=== PATIENT | male | born 1995 | race Caucasian/White ===

== ENCOUNTER 2016-10-08 18:47 | Emergency (ER) | payer OTHER ==
--- NOTE | 2016-10-08 21:11 | UC ---
Back Pain HPI - HPI Summary HPI Summary: complaint of lower back pain front flipped off the table and landed on his sacrum denies hitting his head -no LOC this morning he woke up and he is having and intermittent aching pain non radiating pain worse with movement and coughing rest lessens the pain hasn't taken any medications for pain denies neck pain, fever , incontinence, denies numbness and tingling in his legs - History of Current Complaint Stated Complaint: LOWER BACK PAIN Time Seen by Provider: 10/08/16 21:05 Hx Obtained From: Patient - Allergies/Home Medications Allergies/Adverse Reactions: Allergies Allergy/AdvReac Type Severity Reaction Status Date / Time No Known Allergies Allergy Verified 10/08/16 21:38 Home Medications: Home Medications NK [No Home Medications Reported] 10/08/16 [History Confirmed 10/08/16] PMH/Surg Hx/FS Hx/Imm Hx Previously Healthy: Yes Endocrine History Of: Denies: Diabetes Cardiovascular History Of: Denies: Cardiac Disorders Respiratory History Of: Denies: Asthma - Surgical History Surgical History: None - Family History Known Family History: Positive: Hypertension - paternal grandfather Negative: Cardiac Disease, Diabetes - Social History Occupation: Student Alcohol Use: Occasionally Substance Use Type: None Smoking Status (MU): Never Smoked Tobacco Review of Systems Constitutional: Negative Skin: Negative Eyes: Negative ENT: Negative Respiratory: Negative Cardiovascular: Negative Gastrointestinal: Negative Genitourinary: Negative Motor: Negative Neurovascular: Negative Musculoskeletal: Other: - lower bcak pain, sacrum pain Neurological: Negative Psychological: Negative All Other Systems Reviewed And Are Negative: Yes Physical Exam Triage Information Reviewed: Yes Appearance: No Pain Distress, Well-Nourished Vital Signs Reviewed: Yes Eyes: Positive: Conjunctiva Clear ENT: Positive: Pharynx normal, TMs normal Neck: Positive: Supple, No Lymphadenopathy, Other: - no cspine tenderness Respiratory: Positive: Lungs clear, Normal breath sounds, No respiratory distress Cardiovascular: Positive: RRR, No Murmur, Pulses Normal Abdomen Description: Positive: Nontender, Soft. Negative: CVA Tenderness (R), CVA Tenderness (L), Distended, Guarding Bowel Sounds: Positive: Present Musculoskeletal: Positive: Strength Intact, Other: - BACK- paraspinal lumar tenderness scaral tenderness no ecchymosis or edema full ROM Neurological: Positive: Alert, Other: - negaitve SLR patellar reflexes intact Psychological Exam: Normal Skin Exam: Normal Back Pain Course/Dx - Course Course Of Treatment: exam completed. x-ray ordered d/t trauma- no acute changes noted on x-ray. conservatiove treatment NSAIDS and followup with ortho if no improvement. no neurologic deficits - Differential Dx/Diagnosis Differential Diagnosis/HQI/PQRI: Fracture, Herniated Disc, Strain, Sprain Provider Diagnoses: lower back pain - contusion. sacral contusion Discharge - Discharge Plan Condition: Stable Disposition: HOME Patient Education Materials: Low Back Strain (ED), Sacroiliitis (ED), Contusion in Adults (ED) Referrals: Non Staff,Doctor [Primary Care Provider] - Tank Hinton MD [Medical Doctor] - Additional Instructions: Increase fluids and rest Take ibuprofen for fever and to reduce inflammation If pain doesn't slowly improve of worsens please call PT and orthopedics. Please review your discharge instructions. If your symptoms do not improve please call your primary care provider or return to urgent care
[2016-10-08] MEDS ORDERED: Ibuprofen TAB* 400 MG PO ONE (21:14)
--- NOTE | 2016-10-08 21:45 | RAD ---
HISTORY: Low back pain, trauma COMPARISONS: None VIEWS: 3, frontal, outlet, and lateral views of the sacrum and coccyx FINDINGS: BONE DENSITY: Normal. BONES: There is no displaced fracture. The sacral arches are intact. JOINTS: There is no arthropathy. ALIGNMENT: There is no dislocation. SOFT TISSUES: Unremarkable. OTHER FINDINGS: None. IMPRESSION: NO ACUTE OSSEOUS INJURY OF THE SACRUM AND COCCYX. PLAIN FILMS ARE RELATIVELY INSENSITIVE TO NONDISPLACED FRACTURES OF THE SACRUM AND COCCYX. IF THERE IS PERSISTENT CLINICAL CONCERN FOR SACROCOCCYGEAL OSSEOUS PATHOLOGY, BONE SCANNING MAY BE MORE SENSITIVE
--- NOTE | 2016-10-08 21:46 | RAD ---
HISTORY: Trauma, back pain COMPARISONS: None VIEWS: 3 , Frontal, lateral, and coned-down lateral sacral views of the lumbar spine FINDINGS: ALIGNMENT: There is straightening of the normal lumbar lordosis. VERTEBRAL BODIES: The vertebral body heights are normal. The interpedicular distances are normal. JOINTS: The facet joints are normal. INTERVERTEBRAL DISCS: Unremarkable SOFT TISSUE: Unremarkable. OTHER: The pelvis is unremarkable. The lung bases are clear. IMPRESSION: STRAIGHTENING OF THE LUMBAR LORDOSIS
[2016-10-08 21:56] VITALS: BP 133/60
== END 2016-10-08 22:01 | disposition home or self-care (01) ==
LOC: UCCORT 18:47
DX: S30.0XXA Contusion of lower back and pelvis, initial encounter (principal); X58.XXXA Exposure to other specified factors, initial encounter; Y93.9 Activity, unspecified; Y92.9 Unspecified place or not applicable
CPT/HCPCS: 72100; 72220; 99211; A9270-GY; G0463

== ENCOUNTER 2016-10-11 19:06 | Emergency (ER) | payer OTHER ==
[2016-10-11 20:50] VITALS: BP 125/71
[2016-10-11] MEDS ORDERED: Cyclobenzaprine TAB* 10 MG PO ONE (21:06)
--- NOTE | 2016-10-11 21:17 | UC ---
Back Pain HPI - HPI Summary HPI Summary: Pt seen 10/08/16 after falling off of table the night before. Had focal sacral pain, no fx on x-ray. Was feeling better 10/09/16, then yesterday feet slipped out from underneath him on stairs and he fell backward again. Missed classes today and would like a note for it. Not concerned about bones, denies radiating pain, trouble with bowel or bladder, or muscle weakness. - History of Current Complaint Chief Complaint: UCBackPain Stated Complaint: BACK PAIN Time Seen by Provider: 10/11/16 20:55 Hx Obtained From: Patient Onset/Duration: Sudden Onset Timing: Constant Severity Initially: Moderate Severity Currently: Moderate Back Pain: Is Discrete @ Character: Dull, Aching Aggravating: Movement, Walking Alleviating: Rest Associated Signs And Symptoms: Negative: Bruising, Weakness, Numbness, Tingling , Bladder Incontinence, Bowel Incontinence, Weight Loss - Allergies/Home Medications Allergies/Adverse Reactions: Allergies Allergy/AdvReac Type Severity Reaction Status Date / Time No Known Allergies Allergy Verified 10/11/16 20:49 Home Medications: Home Medications Ibuprofen [Ibuprofen 200 MG] 200 mg PO PRN 10/11/16 [History] PMH/Surg Hx/FS Hx/Imm Hx Endocrine History Of: Denies: Diabetes Cardiovascular History Of: Denies: Cardiac Disorders Respiratory History Of: Denies: Asthma - Surgical History Surgical History: None - Family History Known Family History: Positive: Hypertension - paternal grandfather Negative: Cardiac Disease, Diabetes - Social History Occupation: Student Alcohol Use: Occasionally Substance Use Type: None Smoking Status (MU): Never Smoked Tobacco Review of Systems Constitutional: Negative Skin: Negative Eyes: Negative ENT: Negative Respiratory: Negative Cardiovascular: Negative Gastrointestinal: Negative Genitourinary: Negative Motor: Negative Neurovascular: Negative Musculoskeletal: Arthralgia, Myalgia Neurological: Negative Psychological: Negative All Other Systems Reviewed And Are Negative: Yes Physical Exam Triage Information Reviewed: Yes Appearance: Well-Appearing, No Pain Distress, Well-Nourished Vital Signs: Initial Vital Signs Temp 98.2 F 10/11/16 20:40 Pulse 65 10/11/16 20:40 Resp 14 10/11/16 20:40 BP 125/71 10/11/16 20:40 Pulse Ox 99 10/11/16 20:40 Vital Signs Reviewed: Yes Eye Exam: Normal Eyes: Positive: Conjunctiva Clear ENT Exam: Normal ENT: Positive: Normal ENT inspection, Hearing grossly normal, Pharynx normal, TMs normal Dental Exam: Normal Neck exam: Normal Neck: Positive: Supple, Nontender, No Lymphadenopathy Respiratory Exam: Normal Respiratory: Positive: Chest non-tender, Lungs clear, Normal breath sounds, No respiratory distress, No accessory muscle use Cardiovascular Exam: Normal Cardiovascular: Positive: RRR, No Murmur Musculoskeletal Exam: Normal, Other - no bony tenderness in back Musculoskeletal: Positive: Strength Intact, ROM Intact Neurological Exam: Normal, Other - DTRs 2+ BLE Neurological: Positive: Alert, Muscle Tone Normal Psychological Exam: Normal Skin Exam: Normal Back Pain Course/Dx - Differential Dx/Diagnosis Provider Diagnoses: low back contusion. low back strain Discharge - Discharge Plan Condition: Stable Disposition: HOME Patient Education Materials: Acute Low Back Pain (ED), Contusion in Adults (ED) Forms: *School Release Referrals: Dontrell Juan MD [Medical Doctor] - Additional Instructions: You have declined x-rays today. This is reasonable, as you do not have clinical signs of fracture at this time; however, please get seen again right away if you develop pain or numbness radiating down your legs, difficulty passing urine or stool (or incontinence), numbness in your saddle region, weakness in your legs, inability to get an erection, persistent/worsening pain.
== END 2016-10-11 21:15 | disposition home or self-care (01) ==
LOC: UCCORT 19:06
DX: S30.0XXA Contusion of lower back and pelvis, initial encounter (principal); S39.012A Strain of muscle, fascia and tendon of lower back, initial encounter; W17.89XA Other fall from one level to another, initial encounter; W10.9XXA Fall (on) (from) unspecified stairs and steps, initial encounter; Y93.9 Activity, unspecified; Y92.9 Unspecified place or not applicable
CPT/HCPCS: 99212; A9270-GY; G0463

== ENCOUNTER 2016-10-24 11:59 | Emergency (ER) | payer OTHER ==
[2016-10-24 12:56] VITALS: BP 139/57
--- NOTE | 2016-10-24 12:56 | UC ---
UC General HPI - HPI Summary HPI Summary: vomiting since yest, worse today, no energy, stomach hurts. Vomited 6 times today. Not sure if he has had a fever. was at a lot of parties 10/18/16-10/22/16 Doesn't know if he was a the constitution party where there was meningitis but states he could have been there. He is a [employer] student. Stomach feels uncomfortable, rates discomfort a 6. No diarrhea. - History of Current Complaint Stated Complaint: VOMITING Time Seen by Provider: 10/24/16 12:50 Hx Obtained From: Patient Onset/Duration: Gradual Onset, Lasting Days, Still Present Timing: Constant Onset Severity: Moderate Current Severity: Moderate Pain Intensity: 7 Pain Location at: abdomen Pain Radiates to: no Character: "uncomfortable" Associated Signs & Symptoms: Positive: Abdominal Pain, Nausea, Vomiting - Allergy/Home Medications Allergies/Adverse Reactions: Allergies Allergy/AdvReac Type Severity Reaction Status Date / Time No Known Allergies Allergy Verified 10/24/16 12:50 PMH/Surg Hx/FS Hx/Imm Hx Previously Healthy: Yes Endocrine History Of: Denies: Diabetes Cardiovascular History Of: Denies: Cardiac Disorders Respiratory History Of: Denies: Asthma - Surgical History Surgical History: None - Family History Known Family History: Positive: Hypertension - paternal grandfather Negative: Cardiac Disease, Diabetes - Social History Occupation: Student - [employer] Alcohol Use: Occasionally Substance Use Type: None Smoking Status (MU): Never Smoked Tobacco Review of Systems Constitutional: Negative Skin: Negative Eyes: Negative ENT: Negative Respiratory: Negative Cardiovascular: Negative Gastrointestinal: Abdominal Pain, Vomiting Genitourinary: Negative Motor: Negative Neurovascular: Negative Musculoskeletal: Negative Neurological: Negative Psychological: Negative All Other Systems Reviewed And Are Negative: Yes Physical Exam Triage Information Reviewed: Yes Appearance: Well-Appearing, Well-Nourished, Pain Distress Vital Signs: afebrile Vital Signs Reviewed: Yes Eyes: Positive: Conjunctiva Inflamed, Other: - subconjunctival hemorrhage ENT: Positive: Normal ENT inspection, Hearing grossly normal. Negative: Muffled /hoarse voice Neck: Positive: Supple, Nontender, No Lymphadenopathy Respiratory: Positive: Lungs clear, Normal breath sounds, No respiratory distress Abdomen Description: Positive: No Organomegaly, Soft. Negative: Nontender - diffuse mild tenderness, CVA Tenderness (R), CVA Tenderness (L), Distended, Guarding Musculoskeletal: Positive: Strength Intact, ROM Intact Neurological: Positive: Alert, Muscle Tone Normal Psychological Exam: Normal Skin Exam: Normal Course/Dx - Differential Dx - Multi-Symptom Differential Diagnoses: Other - gastroenteritis Provider Diagnoses: prophylaxis for meningitis exposure. gastroenteritis Discharge - Discharge Plan Condition: Stable Disposition: HOME Prescriptions: Ciprofloxacin TAB* [Cipro Tab*] 500 mg PO ONCE #1 tab Ondansetron ODT TAB* [Zofran Odt TAB*] 4 mg PO Q8H PRN #10 tab.odt PRN Reason: Nausea Patient Education Materials: Gastroenteritis (ED) Forms: *School Release Referrals: Non Staff,Doctor [Primary Care Provider] - Additional Instructions: Follow up with [facility] office, or return to urgent care if no improvement. If any temperature about 100.5, neck pain, headache, or new symptoms, go directly to the closest emergency department.
== END 2016-10-24 13:22 | disposition home or self-care (01) ==
LOC: UCCORT 11:59
DX: K52.9 Noninfective gastroenteritis and colitis, unspecified (principal); Z20.811 Contact with and (suspected) exposure to meningococcus
CPT/HCPCS: 99212; G0463

== ENCOUNTER 2016-11-06 16:32 | Emergency (ER) | payer OTHER ==
[2016-11-06 17:58] VITALS: BP 121/62
--- NOTE | 2016-11-06 18:30 | UC ---
UC General HPI - HPI Summary HPI Summary: patient has on sudden onset upset stomach this after noon, vomited 3 times has had some diarrhea as well. denies any fever, mild sore throat. - History of Current Complaint Chief Complaint: UCGI Stated Complaint: STOMACH ACHE Time Seen by Provider: 11/06/16 18:12 Hx Obtained From: Patient Onset/Duration: Sudden Onset, Lasting Hours Timing: Constant Onset Severity: Moderate Current Severity: Moderate Associated Signs & Symptoms: Positive: Abdominal Pain, Diarrhea, Nausea - Allergy/Home Medications Allergies/Adverse Reactions: Allergies Allergy/AdvReac Type Severity Reaction Status Date / Time No Known Allergies Allergy Verified 11/06/16 17:57 PMH/Surg Hx/FS Hx/Imm Hx Previously Healthy: Yes Endocrine History Of: Denies: Diabetes Cardiovascular History Of: Denies: Cardiac Disorders Respiratory History Of: Denies: Asthma - Surgical History Surgical History: None - Family History Known Family History: Positive: Hypertension - paternal grandfather Negative: Cardiac Disease, Diabetes - Social History Alcohol Use: Occasionally Substance Use Type: None Smoking Status (MU): Never Smoked Tobacco - Immunization History Most Recent Influenza Vaccination: not this season Review of Systems Constitutional: Fatigue Skin: Negative Eyes: Negative ENT: Sore Throat Respiratory: Negative Cardiovascular: Negative Gastrointestinal: Abdominal Pain, Vomiting, Diarrhea Genitourinary: Negative Motor: Negative Neurovascular: Negative Musculoskeletal: Negative Neurological: Headache Psychological: Negative All Other Systems Reviewed And Are Negative: Yes Physical Exam Triage Information Reviewed: Yes Appearance: Well-Nourished, Ill-Appearing, Pain Distress Vital Signs: Initial Vital Signs Temp 98.0 F 11/06/16 17:52 Pulse 53 11/06/16 17:52 Resp 16 11/06/16 17:52 BP 121/62 11/06/16 17:52 Pulse Ox 100 11/06/16 17:52 Vital Signs Reviewed: Yes Eye Exam: Normal Eyes: Positive: Conjunctiva Clear ENT Exam: Normal ENT: Positive: Hearing grossly normal, Pharyngeal erythema - with posterior exudate, TMs normal, Tonsillar swelling Dental Exam: Normal Neck exam: Normal Neck: Positive: Supple, Nontender, No Lymphadenopathy Respiratory Exam: Normal Respiratory: Positive: Chest non-tender, Lungs clear, Normal breath sounds Cardiovascular Exam: Normal Cardiovascular: Positive: RRR, No Murmur, Pulses Normal Abdominal Exam: Other - diffuse abdominal tenderness around umblicus and epigastric area, no rebound tenderness, neg psoas sign. no palpable masses or organomegalsy noted Abdomen Description: Positive: No Organomegaly, Soft Bowel Sounds: Positive: Present Musculoskeletal Exam: Normal Musculoskeletal: Positive: Strength Intact, ROM Intact, No Edema Neurological Exam: Normal Neurological: Positive: Alert, Muscle Tone Normal Psychological Exam: Normal Skin Exam: Normal Course/Dx - Course Course Of Treatment: hx obtained, exam performed, meds reviewed, UA obtained, rapid strep obtained - Differential Dx - Multi-Symptom Provider Diagnoses: abdominal pain. nausea Discharge - Discharge Plan Condition: Stable Disposition: HOME Prescriptions: Ondansetron TAB* [Zofran 4 MG Tab*] 4 mg PO Q6H PRN #28 tab PRN Reason: Nausea Tamsulosin CAP* [Flomax CAP*] 0.4 mg PO DAILY #7 cap Patient Education Materials: Abdominal Pain (ED) Forms: *School Release Additional Instructions: Take the medication as prescribed. you had a small amopunt of blood in your urine. Due to the pain, nausea and blood, it is possible you have a kidney stone. As we talked about you denied imaging today, Increase your clear fluid intake and take the flomax for the next week. use the zofran every 6 hours as needed for nausea. if you develop FEVER, INCREASED ABDOMINAL PAIN, follow up in the ER.
== END 2016-11-06 19:02 | disposition home or self-care (01) ==
LOC: UCCORT 16:32
DX: R10.84 Generalized abdominal pain (principal); R11.0 Nausea; R19.7 Diarrhea, unspecified
CPT/HCPCS: 81003; 87651; 99212; G0463

== ENCOUNTER 2017-05-03 12:54 | Emergency (ER) | payer OTHER ==
--- NOTE | 2017-05-03 13:39 | UC ---
HPI Febrile Illness - HPI Summary HPI Summary: 21 YEAR OLD MALE PRESENTS WITH FEVER, BODY ACHES AND NAUSEA. - History of Current Complaint Time Seen by Provider: 05/03/17 13:38 Hx Obtained From: Patient Onset/Duration: Started Minutes Ago Timing: Constant Initial Severity: Moderate Current Severity: Moderate Pain Scale Used: 0-10 Numeric - 5 Aggravating Factors: Nothing Alleviating Factors: Nothing Associated Signs and Symptoms: Negative - Allergy/Home Medications Allergies/Adverse Reactions: Allergies Allergy/AdvReac Type Severity Reaction Status Date / Time No Known Allergies Allergy Verified 05/03/17 13:49 PMH/Surg Hx/FS Hx/Imm Hx Previously Healthy: Yes Endocrine/Hematology History: Denies: Hx Diabetes Respiratory History: Denies: Hx Asthma - Family History Known Family History: Positive: Hypertension - paternal grandfather Negative: Cardiac Disease, Diabetes - Social History Alcohol Use: Occasionally Substance Use Type: Reports: None Smoking Status (MU): Never Smoked Tobacco Review of Systems Constitutional: Fever, Chills Skin: Negative Eyes: Negative ENT: Negative Respiratory: Negative Cardiovascular: Negative Gastrointestinal: Negative Genitourinary: Negative Motor: Negative Neurovascular: Negative Musculoskeletal: Negative Neurological: Negative Psychological: Negative All Other Systems Reviewed And Are Negative: Yes Physical Exam Triage Information Reviewed: Yes Vital Signs Reviewed: Yes Eye Exam: Normal ENT Exam: Normal Dental Exam: Normal Neck exam: Normal Neck: Positive: 1 Respiratory Exam: Normal Cardiovascular Exam: Normal Abdominal Exam: Normal Musculoskeletal Exam: Normal Neurological Exam: Normal Psychological Exam: Normal Skin Exam: Normal Course/Dx - Diagnoses Clinic Provider Diagnoses: FEVER. CHILLS. BODYACHES Discharge - Discharge Plan Condition: Stable Disposition: HOME Prescriptions: Amoxicillin PO (*) [Amoxicillin 875 MG (*)] 875 mg PO BID #14 tab LoraTADine TAB(NF) [Claritin 10 MG TAB(NF)] 10 mg PO DAILY #30 tab guaiFENesin/CODIEN 100MG-10MG* [Robitussin AC 100Mg-10Mg*] 5 ml PO Q6H PRN #120 udc MDD 20 ML PRN Reason: Cough Patient Education Materials: Allergic Rhinitis (ED) Forms: *School Release Referrals: Non Staff,Doctor [Primary Care Provider] -
[2017-05-03 13:59] VITALS: BP 123/58
== END 2017-05-03 14:04 | disposition home or self-care (01) ==
LOC: UCCORT 12:54
DX: R50.9 Fever, unspecified (principal); R52 Pain, unspecified
CPT/HCPCS: 87502; 99212; G0463

== ENCOUNTER 2017-06-24 10:51 | Emergency (ER) | payer OTHER | END 2017-06-24 14:54 | disposition left against medical advice (07) | LOC: UCEAST 10:51 | DX: Z53.21 Procedure and treatment not carried out due to patient leaving prior to being seen by health care provider (principal) ==

== ENCOUNTER 2017-06-24 14:31 | Emergency (ER) | payer OTHER | END 2017-06-24 16:35 | disposition left against medical advice (07) | LOC: UCCORT 14:31 | DX: M79.1 Myalgia (principal); Z53.21 Procedure and treatment not carried out due to patient leaving prior to being seen by health care provider ==

== ENCOUNTER 2017-06-24 17:15 | Emergency (ER) | payer OTHER | END 2017-06-24 17:51 | disposition left against medical advice (07) | LOC: UCCORT 17:15 | DX: J11.1 Influenza due to unidentified influenza virus with other respiratory manifestations (principal); Z53.21 Procedure and treatment not carried out due to patient leaving prior to being seen by health care provider ==

== ENCOUNTER 2017-06-24 17:27 | Emergency (ER) | payer OTHER ==
[2017-06-24 20:08] VITALS: BP 132/53
--- NOTE | 2017-06-25 13:21 | UC ---
Throat Pain/Nasal Dean HPI - HPI Summary HPI Summary: 21 y/o male presents to the urgent care c/o flu symptoms, body aches, WEEKS, sore throat, nasal congestion for the past 2 days. He also states he had 6 episodes of nausea an vomiting yesterday. Nausea still today w/o any vomiting. He doesn' t recall eating anything outside or different for what he usually eats. He denies abdominal pain, fever, SOB, cough, chest pain, diarrhea, or travel outside the country in the past year. - History of Current Complaint Stated Complaint: FLU SYMPTOMS Time Seen by Provider: 06/24/17 19:59 Hx Obtained From: Patient Onset/Duration: Gradual Onset, Lasting Days - 2 days, Still Present Severity: Mild Pain Intensity: 2 Pain Scale Used: 0-10 Numeric Cough: None Associated Signs & Symptoms: Positive: Dysphagia, Vomiting - Epiglottits Risk Factors Epiglottis Risk Factors: Negative - Allergies/Home Medications Allergies/Adverse Reactions: Allergies Allergy/AdvReac Type Severity Reaction Status Date / Time No Known Allergies Allergy Verified 06/24/17 20:08 PMH/Surg Hx/FS Hx/Imm Hx Previously Healthy: Yes - Pt denies PMHX - Surgical History Surgical History: None - Family History Known Family History: Positive: Hypertension - paternal grandfather Negative: Cardiac Disease, Diabetes - Social History Occupation: Employed Full-time Lives: With Family Alcohol Use: Occasionally Substance Use Type: None Smoking Status (MU): Never Smoked Tobacco - Immunization History Most Recent Influenza Vaccination: not this season Review of Systems Constitutional: Negative Skin: Negative Eyes: Negative ENT: Sore Throat, Nasal Discharge Respiratory: Negative Cardiovascular: Negative Gastrointestinal: Vomiting, Nausea Genitourinary: Negative Motor: Negative Neurovascular: Negative Musculoskeletal: Negative Neurological: Negative Psychological: Negative Is Patient Immunocompromised?: No All Other Systems Reviewed And Are Negative: Yes Physical Exam Triage Information Reviewed: Yes Vital Signs: Initial Vital Signs Temp 98.0 F 06/24/17 20:02 Pulse 77 06/24/17 20:02 Resp 18 06/24/17 20:02 BP 132/53 06/24/17 20:02 Pulse Ox 98 06/24/17 20:02 - Additional Comments VITAL SIGNS: Reviewed. GENERAL: Patient is a well developed and nourished who is sitting comfortable in the examining table. Patient is not in any acute respiratory distress. HEAD AND FACE: No signs of trauma. No ecchymosis, hematomas or skull depressions. No sinus tenderness. EYES: PERRLA, EOMI x 2, No injected conjunctiva, no nystagmus. No photophobia. EARS: Hearing grossly intact. Ear canals and tympanic membranes are within normal limits. MOUTH: Positive pharynx with erythema, no exudates, no palatal petechiae. B/L tonsillar w/o exudate. Uvula in midline. NECK: Supple, trachea is midline, Positive anterior cervical lymphadenopathy, no JVD, no carotid bruit, no c-spine tenderness, neck with full ROM. CHEST: Symmetric, no tenderness at palpation LUNGS: Clear to auscultation bilaterally. No wheezing or crackles. CVS: Regular rate and rhythm, S1 and S2 present, no murmurs or gallops appreciated. ABDOMEN: Soft, non-tender. No signs of distention. No rebound no guarding, and no masses palpated. Bowel sounds are normal. EXTREMITIES: FROM in all major joints, no edema, no cyanosis or clubbing. NEURO: Alert and oriented x 3. No acute neurological deficits. Speech is normal and follows commands. SKIN: Dry and warm Throat Pain/Nasal Course/Dx - Course Course Of Treatment: 21 y/o male presents to the urgent care c/o flu symptoms, body aches, WEEKS, sore throat, nasal congestion for the past 2 days. He also states he had 6 episodes of nausea an vomiting yesterday. Nausea still today w/ o any vomiting. He doesn't recall eating anything outside or different for what he usually eats. He denies abdominal pain, fever, SOB, cough, chest pain, diarrhea, or travel outside the country in the past year.Hx obtained.Rapid strep ordered, result: negative. Influenza A&B ordered, result: neagtive. Viral pharyngitis. Pt Rx ibuprofen PO, Pepcid PO and Zofran PO to alleviates symptoms of pain , swelling and N/V. Advised to increase fluid intake, eat soft meals, rest and avoid strenuous exercise. If symptoms do not improve or worsen advised to return to the urgent care or f/u with her PCP for further evaluation and treatment. Pt understood and agreed - Differential Dx/Diagnosis Differential Diagnosis/HQI/PQRI: Influenza, Laryngitis, Otitis Media, Pharyngitis, Sinusitis, URI Provider Diagnoses: 1- Nausea and vomiting. 2-Viral pharyngitis Discharge - Discharge Plan Condition: Stable Disposition: HOME Prescriptions: Famotidine TAB* [Pepcid 20 MG TAB*] 20 mg PO DAILY #20 tab Ibuprofen TAB* [Motrin TAB* 800 MG] 800 mg PO Q6H #20 tab Ondansetron TAB* [Zofran 4 MG Tab*] 4 mg PO Q6H PRN #12 tab PRN Reason: Vomiting Patient Education Materials: Pharyngitis (ED), Acute Nausea and Vomiting (ED) Forms: *School Release Referrals: [facility] [place] [facility] [Outside] - If Needed Non Staff,Doctor [Primary Care Provider] - Additional Instructions: 1- Please increase fluid intake, drink gatorade of Pedialyte to keep yourself hydrated, eat well and rest 2- Take the Zofran Po as directed if you continue with nausea and vomiting 3- If he develops fever or abdominal pain w/ recurrent episodes of diarrhea please go immediately to the ER for further managemnt. 4- Take the Ibuprofen PO to alleviate sore throat
== END 2017-06-24 20:52 | disposition home or self-care (01) ==
LOC: UCCORT 17:27
DX: R11.2 Nausea with vomiting, unspecified (principal); J02.8 Acute pharyngitis due to other specified organisms
CPT/HCPCS: 87502; 87651; 99212; G0463

== ENCOUNTER 2017-07-22 07:24 | Emergency (ER) | payer OTHER ==
--- NOTE | 2017-07-22 07:30 | UC ---
Head Injury HPI - HPI Summary HPI Summary: 21 year old male presents with right sided head injury secondary to hitting his head on a railing. - History Of Current Complaint Stated Complaint: HEAD INJ Time Seen by Provider: 07/22/17 07:29 Hx Obtained From: Patient Onset/Duration: Sudden Onset Severity Currently: Moderate Severity Initially: Moderate - Allergies/Home Medications Allergies/Adverse Reactions: Allergies Allergy/AdvReac Type Severity Reaction Status Date / Time No Known Allergies Allergy Verified 07/22/17 07:32 Home Medications: Home Medications NK [No Home Medications Reported] 07/22/17 [History Confirmed 07/22/17] PMH/Surg Hx/FS Hx/Imm Hx Previously Healthy: Yes - Surgical History Surgical History: None - Family History Known Family History: Positive: Hypertension - paternal grandfather Negative: Cardiac Disease, Diabetes - Social History Alcohol Use: Occasionally Substance Use Type: None Smoking Status (MU): Never Smoked Tobacco - Immunization History Most Recent Influenza Vaccination: not this season Review of Systems Constitutional: Negative Skin: Negative Eyes: Negative ENT: Negative Respiratory: Negative Cardiovascular: Negative Gastrointestinal: Vomiting, Nausea Genitourinary: Negative Motor: Negative Neurovascular: Negative Musculoskeletal: Negative Neurological: Headache Psychological: Negative All Other Systems Reviewed And Are Negative: Yes Physical Exam Triage Information Reviewed: Yes Appearance: Well-Appearing Vital Signs Reviewed: Yes Eye Exam: Normal ENT Exam: Normal Dental Exam: Normal Neck exam: Normal Neck: Positive: 1 Respiratory Exam: Normal Cardiovascular Exam: Normal Abdominal Exam: Normal Musculoskeletal Exam: Normal Neurological: Positive: Lethargic Psychological Exam: Normal Skin Exam: Normal Head Injury Course/Dx - Differential Dx/Diagnosis Provider Diagnoses: concussion. head injury Discharge - Discharge Plan Condition: Stable Disposition: HOME Patient Education Materials: Concussion (ED), Head Injury (ED) Forms: *School Release Referrals: Namita Sequeira MD [Medical Doctor] - Non Staff,Doctor [Primary Care Provider] -
[2017-07-22 07:51] VITALS: BP 120/74
== END 2017-07-22 07:56 | disposition home or self-care (01) ==
LOC: UCCORT 07:24
DX: S06.0X0A Concussion without loss of consciousness, initial encounter (principal); W22.8XXA Striking against or struck by other objects, initial encounter; Y92.9 Unspecified place or not applicable
CPT/HCPCS: 99211; G0463

== ENCOUNTER 2017-10-22 08:52 | Emergency (ER) | payer OTHER ==
[2017-10-22 09:23] VITALS: BP 123/59
--- NOTE | 2017-10-22 09:36 | UC ---
Abdominal Pain Male HPI - HPI Summary HPI Summary: nausea and vomiting x 1 days was not feeling well, mild abdominal pain , no diarrhea, no urinary sx fell in the shower yesterday and hit the left side of her head had the vomiting before the head injury no loc, no vision changes, - History of Current Complaint Chief Complaint: UCGI Stated Complaint: VOMITING/SP FALL-WEEKS Time Seen by Provider: 10/22/17 09:24 Hx Obtained From: Patient Onset/Duration: Gradual Onset, Lasting Days - 1, Still Present Severity Initially: Moderate Severity Currently: Moderate Pain Intensity: 4 Location: Diffuse Radiates: No Character: Aching, Cramping Aggravating Factor(s): Food Alleviating Factor(s): Rest Associated Signs And Symptoms: Positive: Fever, Nausea, Vomiting. Negative: Diaphoresis, Cough, Chest Pain, Dizzy, Back Pain, Constipation, Blood in Stool, Urinary Symptoms, Decreased Appetite, Diarrhea, Penile Discharge - Allergies/Home Medications Allergies/Adverse Reactions: Allergies Allergy/AdvReac Type Severity Reaction Status Date / Time No Known Allergies Allergy Verified 10/22/17 09:10 PMH/Surg Hx/FS Hx/Imm Hx Previously Healthy: Yes - Surgical History Surgical History: None - Family History Known Family History: Positive: Hypertension - paternal grandfather Negative: Cardiac Disease, Diabetes - Social History Alcohol Use: Occasionally Substance Use Type: None Smoking Status (MU): Never Smoked Tobacco Household Exposure Type: Cigarettes - Immunization History Most Recent Influenza Vaccination: not this season Review of Systems Constitutional: Fever, Chills, Fatigue Skin: Negative Eyes: Negative ENT: Negative Respiratory: Negative Cardiovascular: Negative Gastrointestinal: Abdominal Pain, Vomiting, Nausea Genitourinary: Negative Is Patient Immunocompromised?: No All Other Systems Reviewed And Are Negative: Yes Physical Exam Triage Information Reviewed: Yes Appearance: Well-Appearing, No Pain Distress, Well-Nourished Vital Signs: Initial Vital Signs Temp 97.7 F 10/22/17 09:11 Pulse 52 10/22/17 09:11 Resp 18 10/22/17 09:11 BP 123/59 10/22/17 09:11 Pulse Ox 99 10/22/17 09:11 Vital Signs Reviewed: Yes Eyes: Positive: Conjunctiva Clear ENT: Positive: Normal ENT inspection, Hearing grossly normal, Pharynx normal Neck: Positive: Supple, Nontender, No Lymphadenopathy Respiratory: Positive: Chest non-tender, Lungs clear, Normal breath sounds Cardiovascular: Positive: No Murmur, Bradycardia Abdomen Description: Positive: Nontender, No Organomegaly, Soft, Bruit. Negative: CVA Tenderness (R), CVA Tenderness (L), Distended, Guarding Bowel Sounds: Positive: Present Musculoskeletal Exam: Normal Neurological Exam: Normal UC Physical Exam Vital Signs On Initial Exam: Initial Vitals Temp Pulse Resp BP Pulse Ox 97.7 F 52 18 123/59 99 10/22/17 09:11 10/22/17 09:11 10/22/17 09:11 10/22/17 09:11 10/22/17 09:11 - Neurological Exam Neurological: Sensory/Motor Intact, Alert, Oriented to Person Place, Time, CN Intact II-III, Normal Gait, Speech Normal Abd Pain Male Course/Dx - Differential Dx/Clinical Impression Provider Diagnoses: viral illness. contusion head Discharge - Discharge Plan Condition: Stable Disposition: HOME Patient Education Materials: Head Injury (ED), Viral Syndrome (ED) Forms: *School Release Referrals: Non Staff,Doctor [Primary Care Provider] - If Needed
== END 2017-10-22 09:42 | disposition home or self-care (01) ==
LOC: UCCORT 08:52
DX: B34.9 Viral infection, unspecified (principal); S00.93XA Contusion of unspecified part of head, initial encounter; W19.XXXA Unspecified fall, initial encounter; Y93.E1 Activity, personal bathing and showering; Y92.002 Bathroom of unspecified non-institutional (private) residence as the place of occurrence of the external cause
CPT/HCPCS: 99211; G0463